=== PATIENT | female | born 1995 | race Asian ===

== ENCOUNTER 2016-05-27 04:16 | Emergency (ER) | payer OTHER ==
[2016-05-27 05:57] LABS: Hematocrit 40 % (35-47); Hemoglobin 13.1 g/dl (12.0-16.0); Mean Corpuscular HGB Conc 33 g/dl (31-36); Mean Corpuscular Hemoglobin 29 pg (27-31); Mean Corpuscular Volume 88 fL (80-97); Mean Platelet Volume 9 um3 (7.4-10.4); Red Blood Count 4.52 10^6/ul (4.0-5.4); Red Cell Distribution Width 13 % (10.5-15); White Blood Count 7.7 10^3/ul (3.5-10.8)
[2016-05-27 06:14] LABS: ALT 6 U/L (7-52); AST 12 U/L (13-39); Albumin 4.8 g/dL (3.2-5.2); Alkaline Phosphatase 42 U/L (34-104); Anion Gap 9 mmol/L (2-11); BUN/Creatinine Ratio 15.6 (8-20); Blood Urea Nitrogen 10 mg/dL (6-24); CO2 Carbon Dioxide 26 mmol/L (22-32); Calcium 9.7 mg/dL (8.6-10.3); Chloride 103 mmol/L (101-111); EGFR African American 152.1 (>60); EGFR Non-African American 118.3 (>60); Globulin 2.9 g/dL (2-4); Glucose 93 mg/dL (70-100); Potassium 3.7 mmol/L (3.5-5.0); Sodium 138 mmol/L (133-145); Total Protein 7.7 g/dL (6.4-8.9)
[2016-05-27 06:24] LABS: Alcohol 126 mg/dL (<10)
--- NOTE | 2016-05-27 06:33 | ED ---
Daryl Faustin Salem, scribed for Ambrose Rankin on 05/27/16 at 0450 . Substance Abuse/Use - HPI Summary HPI Summary: Patient is a 21 y/o female who presents to the ED for the aftermath of EtOH abuse. She denies CP or SOB, but reports whole body feels numb. She also reports having a panic attack and states she has had a hx of panic attacks since she was 16 y/o. - History Of Current Complaint Chief Complaint: EDSubstanceAbuse Stated Complaint: ANXIETY/ALCOHOL COMSUMPTION Time Seen by Provider: 05/27/16 04:20 Hx Obtained From: Patient Overdose Characteristics: Oral Severity Initially: Moderate Severity Currently: Moderate Character: Anxious Aggravating Factor(s): Nothing Alleviating Factor(s): Nothing Associated Signs And Symptoms: Other: - No CP or SOB. PMH/Surg Hx/FS Hx/Imm Hx Previously Healthy: Yes Infectious Disease History: No Infectious Disease History: Denies: Traveled Outside the [place] in Last 30 Days - Family History Known Family History: Positive: Cardiac Disease - Grandmother. Negative: Diabetes - Social History Alcohol Use: Occasionally Hx Tobacco Use: No Review of Systems Negative: Fever Negative: Chest Pain Negative: Shortness Of Breath Positive: Anxious All Other Systems Reviewed And Are Negative: Yes Physical Exam Triage Information Reviewed: Yes Vital Signs On Initial Exam: Initial Vitals Temp Pulse Resp BP Pulse Ox 98.7 F 89 20 125/71 100 05/27/16 04:18 05/27/16 04:18 05/27/16 04:18 05/27/16 04:18 05/27/16 04:18 Vital Signs Reviewed: Yes Appearance: Positive: Well-Appearing, No Pain Distress Skin: Positive: Warm, Skin Color Reflects Adequate Perfusion, Dry Head/Face: Positive: Normal Head/Face Inspection Eyes: Positive: EOMI, MAURICE Neck: Positive: Supple, Nontender Respiratory/Lung Sounds: Positive: Clear to Auscultation, Breath Sounds Present Cardiovascular: Positive: RRR, Pulses are Symmetrical in both Upper and Lower Extremities Abdomen Description: Positive: Nontender, Soft Bowel Sounds: Positive: Present Musculoskeletal: Positive: Normal, Strength/ROM Intact Neurological: Positive: Normal, Sensory/Motor Intact, Alert, Oriented to Person Place, Time Diagnostics - Vital Signs Vital Signs Temp Pulse Resp BP Pulse Ox 05/27/16 04:18 98.7 F 89 20 125/71 100 - Laboratory Result Diagrams: 05/27/16 05:35 05/27/16 05:35 Lab Statement: Any lab studies that have been ordered have been reviewed, and results considered in the medical decision making process. Course/Dx - Diagnoses Provider Diagnoses: Intoxication, Anxiety Discharge - Discharge Plan Condition: Stable Disposition: HOME Patient Education Materials: Alcohol Intoxication (ED), Anxiety (ED) Referrals: [facility] DONYA Conn [Primary Care Provider] - Additional Instructions: Follow up with PCP within 3 days. The documentation as recorded by the Daryl bauer Salem accurately reflects the service I personally performed and the decisions made by Chucho lafleur Emmanuel.
[2016-05-27 06:35] LABS: TSH (Thyroid Stimulating Horm) 1.15 mcIU/mL (0.34-5.60)
[2016-05-27 06:51] VITALS: BP 118/68
== END 2016-05-27 06:46 | disposition home or self-care (01) ==
LOC: ED 04:16
DX: F10.129 Alcohol abuse with intoxication, unspecified (principal); F41.9 Anxiety disorder, unspecified
CPT/HCPCS: 36415; 80053; 80320; 84443; 84702; 85025; 99282; G0480

== ENCOUNTER 2018-12-24 15:04 | Emergency (ER) | payer OTHER ==
[2018-12-24 15:38] LABS: ABS Eosinophils 0.1 10^3/ul (0-0.6); ABS Lymphocytes 1.2 10^3/ul (1.0-4.8); ABS Monocytes 0.4 10^3/ul (0-0.8); Eosinophil % 3.9 %; Hematocrit 33 % (35-47); Hemoglobin 10.9 g/dL (12.0-16.0); Lymphocyte % 31.1 %; Mean Corpuscular HGB Conc 33 g/dL (31-36); Mean Corpuscular Hemoglobin 26 pg (27-31); Mean Corpuscular Volume 78 fL (80-97); Mean Platelet Volume 8.1 fL (7.4-10.4); Platelet Count 286 10^3/uL (150-450); Red Blood Count 4.28 10^6 /uL (3.70-4.87); Red Cell Distribution Width 15 % (10-15); White Blood Count 3.8 10^3/uL (3.5-10.8)
[2018-12-24 15:51] LABS: INR 1.04 (0.82-1.09)
[2018-12-24 16:36] LABS: Albumin 4.8 g/dL (3.2-5.2); Calcium 9.6 mg/dL (8.6-10.3); Potassium 3.8 mmol/L (3.5-5.0); Total Bilirubin 0.4 mg/dL (0.2-1.0)
[2018-12-24 16:42] LABS: Albumin/Globulin Ratio 1.8 (1-3); BUN/Creatinine Ratio 18.1 (8-20); EGFR African American 122.6 (>60); EGFR Non-African American 101.3 (>60); Globulin 2.7 g/dL (2-4); Total Protein 7.5 g/dL (6.4-8.9)
--- NOTE | 2018-12-24 17:11 | ED ---
HPI Chest Pain - HPI Summary HPI Summary: Pt is a 23 y/o F presenting to the ED for a chief complaint of chest pain that has occurred for the last 10 days. Pt saw a nurse at [facility] who recommended the pt to go to the ED. Pt rates the chest pain as 4/10 and describes the pain as burning and pressure that is mostly on the left side. The chest pain is associated with weakness, lightheadedness, nausea, and SOB that worsens with rest and taking deep breaths. Pt denies similar symptoms in the past. LNMP was one month ago. Denies any significant PMHx, alcohol or drug use. Admits FHx of cardiac disease. Pt has smoked e-cigarettes (a juul) for the last 2 years. Denies vomiting. - History of Current Complaint Chief Complaint: EDChestPainROMI Time Seen by Provider: 12/24/18 16:59 Hx Obtained From: Patient Onset/Duration: Started Hours Ago, Atraumatic, Still Present Timing: Constant, Lasting Hours Initial Severity: Moderate Current Severity: Moderate Pain Intensity: 4 Pain Scale Used: 0-10 Numeric Chest Pain Location: Diffuse Chest Pain Radiates: No Character: Burning, Dyspnea at Rest, Pressure/Squeezing Aggravating Factor(s): Rest, Deep Breaths Alleviating Factor(s): Nothing Associated Signs and Symptoms: Positive: Chest Pain, Weakness, Shortness of Breath, Lightheadedness, Nausea. Negative: Vomiting - Allergy/Home Medications Allergies/Adverse Reactions: Allergies Allergy/AdvReac Type Severity Reaction Status Date / Time No Known Allergies Allergy Verified 12/24/18 16:57 Home Medications: Home Medications ALPRAZolam TAB* [Xanax TAB*] 0.25 mg PO Q6H PRN 12/24/18 [History Confirmed ] PMH/Surg Hx/FS Hx/Imm Hx Previously Healthy: Yes Endocrine/Hematology History: Denies: Hx Diabetes Cardiovascular History: Denies: Hx Hypercholesterolemia, Hx Hypertension Sensory History: Denies: Hx Legally Blind, Hx Deafness Opthamlomology History: Denies: Hx Legally Blind Psychiatric History: Reports: Hx Panic Disorder, Hx Bipolar Disorder - Surgical History Surgical History: None Surgery Procedure, Year, and Place: None Infectious Disease History: No Infectious Disease History: Denies: Traveled Outside the [place] in Last 30 Days - Family History Known Family History: Positive: Cardiac Disease - Grandmother. Negative: Diabetes - Social History Occupation: Student Alcohol Use: None Hx Substance Use: No Substance Use Type: Reports: None Hx Tobacco Use: No Smoking Status (MU): Current Every Day Smoker Type: Wanda Length of Time of Smoking/Using Tobacco: Last 2 years Review of Systems Positive: Chest Pain Positive: Shortness Of Breath Positive: Nausea. Negative: Vomiting Neurological: Other - Positive lightheadedness Positive: Weakness All Other Systems Reviewed And Are Negative: Yes Physical Exam - Summary Physical Exam Summary: VITAL SIGNS: Reviewed. GENERAL: Patient is a well-developed and nourished FEMALE who is lying comfortable in the stretcher. Patient is not in any acute respiratory distress. HEAD AND FACE: No signs of trauma. No ecchymosis, hematomas or skull depressions. No sinus tenderness. EYES: PERRLA, EOMI x 2, No injected conjunctiva, no nystagmus. EARS: Hearing grossly intact. Ear canals and tympanic membranes are within normal limits. MOUTH: Oropharynx within normal limits. NECK: Supple, trachea is midline, no adenopathy, no JVD, no carotid bruit, no c- spine tenderness, neck with full ROM. CHEST: Symmetric, no tenderness at palpation. Reproducible chest pain. LUNGS: Clear to auscultation bilaterally. No wheezing or crackles. CVS: Regular rate and rhythm, S1 and S2 present, no murmurs or gallops appreciated. ABDOMEN: Soft, non-tender. No signs of distention. No rebound, no guarding, and no masses palpated. Bowel sounds are normal. EXTREMITIES: FROM in all major joints, no edema, no cyanosis or clubbing. NEURO: Alert and oriented x 3. No acute neurological deficits. Speech is normal and follows commands. SKIN: Dry and warm. Triage Information Reviewed: Yes Vital Signs On Initial Exam: Initial Vitals Temp Pulse Resp BP Pulse Ox 98.2 F 82 16 130/66 100 12/24/18 15:12/24/18 15:12/24/18 15:12/24/18 15:12/24/18 15:09 Vital Signs Reviewed: Yes Diagnostics - Vital Signs Vital Signs Temp Pulse Resp BP Pulse Ox 12/24/18 15: 98.2 F 82 16 130/66 100 - Laboratory Lab Results: Lab Results 12/24/18 12/24/18 12/24/18 Range/Units 15:31 15:31 15:31 WBC 3.8 (3.5-10.8) 10^3/uL RBC 4.28 (3.70-4.87) 10^6 /uL Hgb 10.9 L (12.0-16.0) g/dL Hct 33 L (35-47) % MCV 78 L (80-97) fL MCH 26 L (27-31) pg MCHC 33 (31-36) g/dL RDW 15 (10-15) % Plt Count 286 (150-450) 10^3/uL MPV 8.1 (7.4-10.4) fL Neut % (Auto) 54.6 % Lymph % (Auto) 31.1 % [place] % (Auto) 9.6 % Eos % (Auto) 3.9 % Baso % (Auto) 0.8 % Absolute Neuts (auto) 2.0 (1.5-7.7) 10^3/ul Absolute Lymphs (auto) 1.2 (1.0-4.8) 10^3/ul Absolute Monos (auto) 0.4 (0-0.8) 10^3/ul Absolute Eos (auto) 0.1 (0-0.6) 10^3/ul Absolute Basos (auto) 0.0 (0-0.2) 10^3/ul Absolute Nucleated RBC 0.0 10^3/ul Nucleated RBC % 0.0 INR (Anticoag Therapy) 1.04 (0.82-1.09) Sodium 137 (135-145) mmol/L Potassium 3.8 (3.5-5.0) mmol/L Chloride 105 (101-111) mmol/L Carbon Dioxide 26 (22-32) mmol/L Anion Gap 6 (2-11) mmol/L BUN 13 (6-24) mg/dL Creatinine 0.72 (0.51-0.95) mg/dL Est GFR ( Amer) 122.6 (>60) Est GFR (Non-Af Amer) 101.3 (>60) BUN/Creatinine Ratio 18.1 (8-20) Glucose 91 (70-100) mg/dL Calcium 9.6 (8.6-10.3) mg/dL Total Bilirubin 0.40 (0.2-1.0) mg/dL AST 14 (13-39) U/L ALT 8 (7-52) U/L Alkaline Phosphatase 36 (34-104) U/L Troponin I 0.00 (<0.04) ng/mL Total Protein 7.5 (6.4-8.9) g/dL Albumin 4.8 (3.2-5.2) g/dL Globulin 2.7 (2-4) g/dL Albumin/Globulin Ratio 1.8 (1-3) Result Diagrams: 12/24/18 15:31 12/24/18 15:31 Lab Statement: Any lab studies that have been ordered have been reviewed, and results considered in the medical decision making process. - Radiology Chest X-ray Radiology Interpretation Completed By: ED Physician Summary of Radiographic Findings: Chest X-ray: negative, no acute process, pending official radiology report. - EKG 15:07 Cardiac Rate: NL - 84 BPM EKG Rhythm: Sinus Rhythm ST Segment: Normal Ectopy: None Summary of EKG Findings: EKG at 15:07 shows 84 BPM with sinus rhythm, no STEMI. Reviewed and interpreted by ED physician. Chest Pain Course/Dx - Course Assessment/Plan: This patient is a 23-year-old female who presents to the emergency department with a chief complaint of having chest pain. She reports the chest pain being intermittent, and describes it as sharp and pressure. On physical exam the patient has reproducible chest pain. Blood test results without any significant abnormality. The troponin is 0.00. D-dimer is less than 200 therefore no significant for PE. The heart to score is equal to 0. I have no suspicion for acute coronary syndrome. Chest x-ray impression: No acute pathology. Patient reports that all symptoms have resolved. Because the patient has no significant comorbidities and no family history of cardiovascular disease at his age the patient will be discharged home with follow up with PCP. I discussed all the findings and test results with the patient. Patient was instructed to return to the emergency room immediately if any of the symptoms return or worsens. Patient understands and agrees. Plan of care was discussed with the patient and patient understands and agrees. All questions were answered at patient satisfaction. There were no further complaints or concerns. PE before discharge: CVS: S1 and S2 present. No murmurs appreciated. Abdominal exam before discharge: Soft, non-tender. No signs of distention. No rebound no guarding, and no masses palpated. Bowel sounds are normal. Patient is alert and oriented x 3. Patient is hemodynamically stable. - Diagnoses Provider Diagnoses: Atypical chest pain Discharge ED - Sign-Out/Discharge Documenting (check all that apply): Patient Departure Patient Received Moderate/Deep Sedation with Procedure: No - Discharge Plan Condition: Stable Disposition: HOME Patient Education Materials: Chest Pain (ED) Referrals: [facility] [Primary Care Provider] - Additional Instructions: Please follow up with [facility] within the next 2-3 days. Return to the emergency department with any new or worsening symptoms. - Billing Disposition and Condition Condition: STABLE Disposition: Home - Attestation Statements Document Initiated by Scribe: Yes Documenting Scribe: Palma Moore Provider For Whom Salomon is Documenting (Include Credential): Juan Louise MD. Scribe Attestation: I, Palma Moore, scribed for Juan Louise MD. on 12/25/18 at 0740. Scribe Documentation Reviewed: Yes Provider Attestation: The documentation as recorded by the scribe, Palma Moore accurately reflects the service I personally performed and the decisions made by Juan lafleur MD. Status of Scribe Document: Viewed
[2018-12-24] MEDS ORDERED: Ibuprofen TAB* 600 MG PO ONE (18:10)
[2018-12-24 18:40] VITALS: BP 125/72
== END 2018-12-24 18:40 | disposition home or self-care (01) ==
LOC: ED 15:04
DX: R07.89 Other chest pain (principal); F17.290 Nicotine dependence, other tobacco product, uncomplicated
CPT/HCPCS: 36415; 71045; 80053; 84484; 85025; 85379; 85610; 93005; 99283; A9270-GY

== ENCOUNTER 2018-12-25 23:12 | Emergency (ER) | payer OTHER ==
[2018-12-26 00:01] LABS: ABS Basophils 0.1 10^3/ul (0-0.2); ABS Eosinophils 0.2 10^3/ul (0-0.6); ABS Lymphocytes 1.7 10^3/ul (1.0-4.8); ABS Monocytes 0.9 10^3/ul (0-0.8); ABS Neutrophils 4.2 10^3/ul (1.5-7.7); Eosinophil % 2.3 %; Hematocrit 31 % (35-47); Hemoglobin 9.9 g/dL (12.0-16.0); Lymphocyte % 24.2 %; Mean Corpuscular HGB Conc 32 g/dL (31-36); Mean Corpuscular Hemoglobin 25 pg (27-31); Mean Corpuscular Volume 78 fL (80-97); Mean Platelet Volume 7.7 fL (7.4-10.4); Platelet Count 264 10^3/uL (150-450); Red Blood Count 3.95 10^6 /uL (3.70-4.87); Red Cell Distribution Width 15 % (10-15); White Blood Count 7.1 10^3/uL (3.5-10.8)
[2018-12-26 00:07] LABS: INR 1.1 (0.82-1.09)
[2018-12-26 00:19] LABS: ALT 7 U/L (7-52); AST 12 U/L (13-39); Albumin 4.5 g/dL (3.2-5.2); Albumin/Globulin Ratio 1.8 (1-3); Alkaline Phosphatase 34 U/L (34-104); Anion Gap 4 mmol/L (2-11); BUN/Creatinine Ratio 20.8 (8-20); Blood Urea Nitrogen 15 mg/dL (6-24); CO2 Carbon Dioxide 27 mmol/L (22-32); Calcium 9.3 mg/dL (8.6-10.3); Chloride 105 mmol/L (101-111); EGFR African American 122.6 (>60); EGFR Non-African American 101.3 (>60); Globulin 2.5 g/dL (2-4); Glucose 88 mg/dL (70-100); Potassium 3.7 mmol/L (3.5-5.0); Sodium 136 mmol/L (135-145)
[2018-12-26 00:43] LABS: HCG Pregnancy < 0.60 mIU/mL
[2018-12-26 00:54] LABS: HIV 4th Generation Nonreactive (Nonreactive)
[2018-12-26] MEDS ORDERED: Ketorolac INJ* 30 MG/ML 1 ML VIAL IM ONE (01:10)
--- NOTE | 2018-12-26 02:27 | ED ---
HPI Chest Pain - HPI Summary HPI Summary: Pt is a 23 y/o F presenting to the ED for a chief complaint of severe chest pain that began 2 hours ago while sitting. She was seen 12/24/18 after having similar chest pain for 10-14 days. Pt describes the pain as a pressure and now describes present pain as a burning sensation and pressure. The location of the pain varies and she occasionally feels the pain radiating to the back. The pain is currently in the midsternal chest. Pt tried eating healthier and sleeping better with no relief. [facility] and the nurse she spoke to told her to go to the ED. No significant findings were found when pt was previously at [facility] as told by patient. Pt has nausea, fatigue, lightheadedness, and SOB but denies diaphoresis. The pain is currently better than the pain she had 2 hours ago sitting and at rest. - History of Current Complaint Chief Complaint: EDChestPainROMI Time Seen by Provider: 12/26/18 01:03 Hx Obtained From: Patient Onset/Duration: Started Days Ago, Atraumatic, Still Present Timing: Lasting Days Initial Severity: Severe Current Severity: Severe Pain Intensity: 7 Pain Scale Used: 0-10 Numeric Chest Pain Location: Mid Sternal Chest Pain Radiates: Yes Chest Pain Radiates To:: Back Character: Burning, Pressure/Squeezing Aggravating Factor(s): Rest Alleviating Factor(s): Nothing Associated Signs and Symptoms: Positive: Chest Pain, Shortness of Breath, Lightheadedness, Nausea, Other: - Positive fatigue,. Negative: Diaphoresis - Allergy/Home Medications Allergies/Adverse Reactions: Allergies Allergy/AdvReac Type Severity Reaction Status Date / Time No Known Allergies Allergy Verified 12/25/18 23:49 PMH/Surg Hx/FS Hx/Imm Hx Previously Healthy: Yes Endocrine/Hematology History: Denies: Hx Diabetes Cardiovascular History: Denies: Hx Hypercholesterolemia, Hx Hypertension Sensory History: Denies: Hx Legally Blind, Hx Deafness Opthamlomology History: Denies: Hx Legally Blind Psychiatric History: Reports: Hx Panic Disorder, Hx Bipolar Disorder - Surgical History Surgical History: None Surgery Procedure, Year, and Place: None Infectious Disease History: No Infectious Disease History: Denies: Traveled Outside the [place] in Last 30 Days - Family History Known Family History: Positive: Cardiac Disease - Grandmother. Negative: Diabetes - Social History Alcohol Use: Occasionally Hx Substance Use: No Substance Use Type: Reports: None Hx Tobacco Use: No Smoking Status (MU): Current Every Day Smoker Type: Wanda Length of Time of Smoking/Using Tobacco: Last 2 years Review of Systems Positive: Fatigue. Negative: Skin Diaphoresis Positive: Chest Pain Positive: Shortness Of Breath Positive: Nausea Neurological: Other - Positive lightheadedness All Other Systems Reviewed And Are Negative: Yes Physical Exam - Summary Physical Exam Summary: General: Well-developed, Well-nourished. Female. No acute distress. HEENT: Normocephalic, Atraumatic. Eyes: Conjuctiva normal, PERRL. Ears: TMs within normal limits. Nares: (-) discharge, (-) erythema. Oropharynx: Clear, mucous membranes moist, (-) exudates. Neck: Soft, FROM, (-) lymphadenopathy, (-) thyromegaly, (-) JVD. Cardiovascular: Normal sinus rhythm, (-) murmur. Lungs: Clear to auscultation bilaterally (-) wheezes, (-) rales, (-) rhonchi. Abdomen: Soft, non-tender, non-distended, (-) organomegaly, normal bowel sounds. Back: (-) CVA tenderness Extremities: No edema. Skin: Warm, dry, (-) rash. Neuro: Alert and oriented x3, no focal deficits. Psychiatric: Mood normal, affect normal. Triage Information Reviewed: Yes Vital Signs On Initial Exam: Initial Vitals Temp Pulse Resp BP Pulse Ox 99 F 83 18 124/87 100 12/25/18 23:22 12/25/18 23:22 12/25/18 23:22 12/25/18 23:22 12/25/18 23:22 Vital Signs Reviewed: Yes Diagnostics - Vital Signs Vital Signs Temp Pulse Resp BP Pulse Ox 12/26/18 00:00 72 28 100 12/25/18 23:37 74 26 128/71 100 12/25/18 23:36 75 17 100 12/25/18 23:22 99 F 83 18 124/87 100 - Laboratory Lab Results: Lab Results 12/25/18 12/25/18 12/25/18 Range/Units 23:55 23:55 23:55 WBC 7.1 (3.5-10.8) 10^3/uL RBC 3.95 (3.70-4.87) 10^6 /uL Hgb 9.9 L (12.0-16.0) g/dL Hct 31 L (35-47) % MCV 78 L (80-97) fL MCH 25 L (27-31) pg MCHC 32 (31-36) g/dL RDW 15 (10-15) % Plt Count 264 (150-450) 10^3/uL MPV 7.7 (7.4-10.4) fL Neut % (Auto) 59.8 % Lymph % (Auto) 24.2 % [place] % (Auto) 12.9 % Eos % (Auto) 2.3 % Baso % (Auto) 0.8 % Absolute Neuts (auto) 4.2 (1.5-7.7) 10^3/ul Absolute Lymphs (auto) 1.7 (1.0-4.8) 10^3/ul Absolute Monos (auto) 0.9 H (0-0.8) 10^3/ul Absolute Eos (auto) 0.2 (0-0.6) 10^3/ul Absolute Basos (auto) 0.1 (0-0.2) 10^3/ul Absolute Nucleated RBC 0.0 10^3/ul Nucleated RBC % 0.0 INR (Anticoag Therapy) 1.10 H (0.82-1.09) Sodium 136 (135-145) mmol/L Potassium 3.7 (3.5-5.0) mmol/L Chloride 105 (101-111) mmol/L Carbon Dioxide 27 (22-32) mmol/L Anion Gap 4 (2-11) mmol/L BUN 15 (6-24) mg/dL Creatinine 0.72 (0.51-0.95) mg/dL Est GFR ( Amer) 122.6 (>60) Est GFR (Non-Af Amer) 101.3 (>60) BUN/Creatinine Ratio 20.8 H (8-20) Glucose 88 (70-100) mg/dL Calcium 9.3 (8.6-10.3) mg/dL Total Bilirubin 0.40 (0.2-1.0) mg/dL AST 12 L (13-39) U/L ALT 7 (7-52) U/L Alkaline Phosphatase 34 (34-104) U/L Troponin I 0.00 (<0.04) ng/mL Total Protein 7.0 (6.4-8.9) g/dL Albumin 4.5 (3.2-5.2) g/dL Globulin 2.5 (2-4) g/dL Albumin/Globulin Ratio 1.8 (1-3) Beta HCG, Quant < 0.60 mIU/mL HIV 1&2 Ab/P24 Ag 4thGn (Nonreactive) 12/25/18 Range/Units 23:55 WBC (3.5-10.8) 10^3/uL RBC (3.70-4.87) 10^6 /uL Hgb (12.0-16.0) g/dL Hct (35-47) % MCV (80-97) fL MCH (27-31) pg MCHC (31-36) g/dL RDW (10-15) % Plt Count (150-450) 10^3/uL MPV (7.4-10.4) fL Neut % (Auto) % Lymph % (Auto) % [place] % (Auto) % Eos % (Auto) % Baso % (Auto) % Absolute Neuts (auto) (1.5-7.7) 10^3/ul Absolute Lymphs (auto) (1.0-4.8) 10^3/ul Absolute Monos (auto) (0-0.8) 10^3/ul Absolute Eos (auto) (0-0.6) 10^3/ul Absolute Basos (auto) (0-0.2) 10^3/ul Absolute Nucleated RBC 10^3/ul Nucleated RBC % INR (Anticoag Therapy) (0.82-1.09) Sodium (135-145) mmol/L Potassium (3.5-5.0) mmol/L Chloride (101-111) mmol/L Carbon Dioxide (22-32) mmol/L Anion Gap (2-11) mmol/L BUN (6-24) mg/dL Creatinine (0.51-0.95) mg/dL Est GFR ( Amer) (>60) Est GFR (Non-Af Amer) (>60) BUN/Creatinine Ratio (8-20) Glucose (70-100) mg/dL Calcium (8.6-10.3) mg/dL Total Bilirubin (0.2-1.0) mg/dL AST (13-39) U/L ALT (7-52) U/L Alkaline Phosphatase (34-104) U/L Troponin I (<0.04) ng/mL Total Protein (6.4-8.9) g/dL Albumin (3.2-5.2) g/dL Globulin (2-4) g/dL Albumin/Globulin Ratio (1-3) Beta HCG, Quant mIU/mL HIV 1&2 Ab/P24 Ag 4thGn Nonreactive (Nonreactive) Result Diagrams: 12/25/18 23:55 12/25/18 23:55 Lab Statement: Any lab studies that have been ordered have been reviewed, and results considered in the medical decision making process. - Radiology Chest X-ray Radiology Interpretation Completed By: ED Physician Summary of Radiographic Findings: Chest X-ray impression: normal. Reviewed by ED physician, pending official radiology report. - EKG 23:15 Cardiac Rate: NL - 90 BPM EKG Rhythm: Sinus Rhythm ST Segment: Normal Ectopy: None Summary of EKG Findings: At 23:15, EKG reveals 90 BPM, normal sinus rhythm, no STEMI. Reviewed and interpreted by Dr. Yanes. Chest Pain Course/Dx - Course Course Of Treatment: Pt is a 23 y/o F presenting to the ED for a chief complaint of severe chest pain that began 2 hours ago while sitting. She was seen 12/24/18 after having similar chest pain for 10-14 days. Pt describes the pain as a pressure and now describes present pain as a burning sensation and pressure. The location of the pain varies and she occasionally feels the pain radiating to the back. The pain is currently in the midsternal chest. Pt tried eating healthier and sleeping better with no relief. [facility] and the nurse she spoke to told her to go to the ED. No significant findings were found when pt was previously at [facility] as told by patient. Pt has nausea, fatigue, lightheadedness, and SOB but denies diaphoresis. The pain is currently better than the pain she had 2 hours ago sitting and at rest. On exam, unremarkable findings. Laboratory abnormal findings: Hgb 9.9, Hct 31, MCV 78, MCH 25, absolute monos 0.9, INR 1.10, BUN/ creatinine 20.8, and AST 12. At 23:15, EKG reveals 90 BPM, normal sinus rhythm , no STEMI. Reviewed and interpreted by Dr. Yanes. Chest X-ray impression: normal. During ED course, patient received Toradol 30 mg IM. Patient is discharged with a diagnosis of chest pain and anxiety. Follow up with PCP ithin 3 days. Return to ED for any new or worsening symptoms. - Diagnoses Provider Diagnoses: Chest pain, Anxiety Discharge ED - Sign-Out/Discharge Documenting (check all that apply): Patient Departure - Discharged Patient Received Moderate/Deep Sedation with Procedure: No - Discharge Plan Condition: Stable Disposition: HOME Patient Education Materials: Chest Pain (ED) [facility] - Additional Instructions: Follow up with primary care provider within 3 days. Return to ED for any new or worsening symptoms. - Billing Disposition and Condition Condition: STABLE Disposition: Home - Attestation Statements Document Initiated by Scribe: Yes Documenting Scribe: Omega Grajeda Provider For Whom Friedae is Documenting (Include Credential): Estrella Yanes MD. Scribe Attestation: Omega Faustin, scribed for Estrella Yanes MD. on 12/27/18 at 0025. Scribe Documentation Reviewed: Yes Provider Attestation: The documentation as recorded by the Omega bauer accurately reflects the service I personally performed and the decisions made by me, Estrella Yanes MD. Status of Scribe Document: Viewed
[2018-12-26 02:41] VITALS: BP 124/76
== END 2018-12-26 02:40 | disposition home or self-care (01) ==
LOC: ED 23:12
DX: R07.9 Chest pain, unspecified (principal); R06.02 Shortness of breath; R42 Dizziness and giddiness; R53.83 Other fatigue; F17.210 Nicotine dependence, cigarettes, uncomplicated; R11.0 Nausea; F41.9 Anxiety disorder, unspecified
CPT/HCPCS: 36415; 71045; 80053; 84484; 84702; 85025; 85610; 87389; 93005; 96372; 99283; J1885

== ENCOUNTER 2019-01-08 19:46 | Emergency (ER) | payer OTHER ==
--- NOTE | 2019-01-08 20:12 | ED ---
Throat Pain/Nasal Congestion - HPI Summary HPI Summary: Pt is a 23 y/o F presenting to the ED via EMS for throat pain. At approximately 18:30 on 01/08/19, pt states she choked while eating candy after which pt felt she could not breathe. Pt had SOB twice after eating the candy and currently has a sore throat. Pt feels a burning sensation in the chest and feels clogged. Pt has a foreign body sensation of the candy being stuck in the esophagus. Pt has been drinking hot tea with limited relief. Pt smokes e-cigarettes daily. Pt denies PMHx of DM, but admits HTN in her father. Pt denies any significant PMHx or PSHx. - History of Current Complaint Chief Complaint: EDThroatPain Time Seen by Provider: 01/08/19 20:00 Hx Obtained From: Patient Onset/Duration: Sudden Onset, Lasting Hours, Still Present Severity: Moderate Associated Signs And Symptoms: Positive: Dysphagia, FB Sensation - Candy Cough: None - Allergies/Home Medications Allergies/Adverse Reactions: Allergies Allergy/AdvReac Type Severity Reaction Status Date / Time No Known Allergies Allergy Verified 01/08/19 20:02 PMH/Surg Hx/FS Hx/Imm Hx Previously Healthy: Yes Endocrine/Hematology History: Denies: Hx Diabetes Cardiovascular History: Denies: Hx Hypercholesterolemia, Hx Hypertension Sensory History: Denies: Hx Legally Blind, Hx Deafness Opthamlomology History: Denies: Hx Legally Blind Psychiatric History: Reports: Hx Panic Disorder, Hx Bipolar Disorder - Surgical History Surgical History: None Surgery Procedure, Year, and Place: None Infectious Disease History: No Infectious Disease History: Denies: Traveled Outside the [place] in Last 30 Days - Family History Known Family History: Positive: Cardiac Disease - Grandmother. , Hypertension - Father Negative: Diabetes - Social History Occupation: Student Alcohol Use: Occasionally Hx Substance Use: No Substance Use Type: Reports: None Hx Tobacco Use: No Smoking Status (MU): Current Every Day Smoker Type: eCigarettes Length of Time of Smoking/Using Tobacco: Last 2 years Review of Systems Positive: Sore Throat, Other - Positive thraot pain and foreign body sensation in esophagus after eating candy. Positive: Other - Burning sensation in chest Positive: Shortness Of Breath All Other Systems Reviewed And Are Negative: Yes Physical Exam - Summary Physical Exam Summary: Constitutional: Well-developed, Well-nourished, Alert. (-) Distressed Skin: Warm, Dry HENT: Normocephalic; Atraumatic Eyes: Conjunctiva normal Neck: Musculoskeletal ROM normal neck. (-) JVD, (-) Stridor, (-) Nuchal rigidity Cardio: Rhythm regular, rate normal, Heart sounds normal; Intact distal pulses; Radial pulses are 2+ and symmetric. (-) Murmur Pulmonary/Chest wall: Effort normal. (-) Respiratory distress, (-) Wheezes, (-) Rales Abd: Soft, (-) tenderness, (-) Distension, (-) Guarding, (-) Rebound Musculoskeletal: (-) Edema Lymph: (-) Cervical adenopathy Neuro: Alert, Oriented x3 Psych: Mood and affect Normal Triage Information Reviewed: Yes Vital Signs On Initial Exam: Initial Vitals Temp Pulse Resp BP Pulse Ox 98.0 F 79 16 126/67 100 01/08/19 19:56 01/08/19 19:56 01/08/19 19:56 01/08/19 19:56 01/08/19 19:56 Vital Signs Reviewed: Yes Procedures - Sedation Patient Received Moderate/Deep Sedation with Procedure: No Diagnostics - Vital Signs Vital Signs Temp Pulse Resp BP Pulse Ox 01/08/19 19:56 98.0 F 79 16 126/67 100 - Laboratory Lab Statement: Any lab studies that have been ordered have been reviewed, and results considered in the medical decision making process. - Radiology Chest X-ray Radiology Interpretation Completed By: ED Physician Summary of Radiographic Findings: Chest X-ray IMPRESSION: no acute process. Reviewed and interpreted by ED physician, pending official radiology report. Re-Evaluation - Re-Evaluation 1st re-eval Re-Evaluation Time: 21:27 Change: Improved Comment: At 21:27, pt is improved, tolerating PO. Denies FB sensation EENT Course/Dx - Course Course Of Treatment: 23 y/o F w FB sensation of candy. - PE: soft abdomen, easy WOB. No excoriations of pharynx. Check CXR though low suspicion of FB. Will give GI cocktail. Tolerating PO. - Diagnoses Provider Diagnoses: Throat pain, Foreign body ingestion Discharge ED - Sign-Out/Discharge Documenting (check all that apply): Patient Departure - Discharge - Discharge Plan Condition: Stable Disposition: HOME Patient Education Materials: Foreign Body Ingestion (ED) Referrals: [facility] - Jass DANIEL [Primary Care Provider] - Additional Instructions: You were seen in the emergency department for sore throat and concern for foreign body ingestion. Your XR did not show any abnormalities. If any studies were not completed at the time of discharge you will be called with the relevant results. Please follow up with your primary care doctor in next 2-3 days and return to emergency department for worsening or concerning symptoms. It was a pleasure taking care of you today. - Billing Disposition and Condition Condition: STABLE Disposition: Home - Attestation Statements Document Initiated by Salomon: Yes Documenting Scribe: Radha Sandoval Provider For Whom Salomon is Documenting (Include Credential): Twila Hair MD Scribe Attestation: Radha Faustin, scribed for Twila Hair MD on 01/08/19 at 2317. Scribe Documentation Reviewed: Yes Provider Attestation: The documentation as recorded by the Radha bauer accurately reflects the service I personally performed and the decisions made by Twila lafleur MD Status of Scribe Document: Viewed
[2019-01-08] MEDS ORDERED: Lidocaine 2% VISCOUS* 15 ML UDC PO ONE (20:17)
[2019-01-08] MEDS ORDERED: Al Hydrox/Mg Hydrox/Simet LIQ* 30 ML UDC PO ONE (20:17)
[2019-01-08 21:42] VITALS: BP 118/74
== END 2019-01-08 21:40 | disposition home or self-care (01) ==
LOC: ED 19:46
DX: R07.0 Pain in throat (principal); T18.9XXA Foreign body of alimentary tract, part unspecified, initial encounter; X58.XXXA Exposure to other specified factors, initial encounter; Y92.9 Unspecified place or not applicable; F17.210 Nicotine dependence, cigarettes, uncomplicated; R06.02 Shortness of breath
CPT/HCPCS: 71046; 99282; A9270-GY

== ENCOUNTER 2019-01-13 16:48 | Emergency (ER) | payer OTHER ==
--- NOTE | 2019-01-13 19:27 | ED ---
HPI Chest Pain - HPI Summary HPI Summary: Pt is a 23 y/o F presenting to the ED for a chief complaint of chest pain that most recently began 2 days ago. Pt was previously seen at [facility] and told to go to the ED. Pt states the CP is intermittent and is right-sided and midsternal. The CP worsens with movement and occasionally worsens with deep breaths. Pt describes the CP as pressure, but describes the CP previously felt sharp with pressure. Pt admits nausea, SOB, sore throat, and numbness in the left arm. Pt denies bilateral LE edema or changes in sleeping patterns. Pt last travelled in October 2018. Pt was seen at [facility] and told she had gastritis. Pt has been taking medication for gastritis for 2-3 weeks. Pt was previously seen at [facility] twice 3 weeks ago with unremarkable findings. Pt denies and LNMP was on 01/03/19. - History of Current Complaint Chief Complaint: EDChestPainROMI Time Seen by Provider: 01/13/19 19:10 Hx Obtained From: Patient Hx Last Menstrual Period: 01/03/19 Onset/Duration: Started Days Ago - 2 days Timing: Intermittent Initial Severity: Moderate Current Severity: Moderate Pain Intensity: 6 Pain Scale Used: 0-10 Numeric Chest Pain Location: Mid Sternal, Left Anterior Chest Pain Radiates: No Character: Pressure/Squeezing - At present time, Sharp/Stabbing - Not at present time Aggravating Factor(s): Movement, Deep Breaths - Occasionally Alleviating Factor(s): Nothing Associated Signs and Symptoms: Positive: Chest Pain - Right sided and midsternal , Numbness - Left arm, Shortness of Breath, Nausea, Other: - Positive sore throat. Negative: Edema - Bilateral LE - Allergy/Home Medications Allergies/Adverse Reactions: Allergies Allergy/AdvReac Type Severity Reaction Status Date / Time No Known Allergies Allergy Verified 01/13/19 17:17 Home Medications: Home Medications Ferrous Sulfate TAB* 325 mg PO DAILY 01/13/19 [History Confirmed 01/13/19] Omeprazole (Nf) [Prilosec (NF)] 40 mg PO DAILY 01/13/19 [History Confirmed 01/13] PMH/Surg Hx/FS Hx/Imm Hx Previously Healthy: Yes Endocrine/Hematology History: Denies: Hx Diabetes Cardiovascular History: Denies: Hx Hypercholesterolemia, Hx Hypertension Sensory History: Denies: Hx Legally Blind, Hx Deafness Opthamlomology History: Denies: Hx Legally Blind Psychiatric History: Reports: Hx Panic Disorder, Hx Bipolar Disorder - Surgical History Surgical History: None Surgery Procedure, Year, and Place: None Infectious Disease History: No Infectious Disease History: Denies: Traveled Outside the [place] in Last 30 Days - Family History Known Family History: Positive: Cardiac Disease - Grandmother. , Hypertension - Father Negative: Diabetes - Social History Alcohol Use: Occasionally Hx Substance Use: No Substance Use Type: Reports: None Hx Tobacco Use: No Smoking Status (MU): Current Every Day Smoker Type: eCigarettes Length of Time of Smoking/Using Tobacco: Last 2 years Review of Systems Positive: Sore Throat Positive: Chest Pain - Right sided and midsternal Positive: Shortness Of Breath Positive: Nausea Negative: Edema - Bilateral LE Positive: Numbness - Left arm Positive: Other - Negative changes in sleeping pattern All Other Systems Reviewed And Are Negative: Yes Physical Exam - Summary Physical Exam Summary: Appearance: The patient is well-nourished in no acute distress and in no acute pain. Skin: The skin is warm and dry, and skin color reflects adequate perfusion. HEENT: The head is normocephalic and atraumatic. The pupils are equal and reactive. The conjunctivae are clear and without drainage. Nares are patent and without drainage. Mouth reveals moist mucous membranes, and the throat is without erythema and exudate. The external ears are intact. The ear canals are patent and without drainage. The tympanic membranes are intact. Neck: The neck is supple with full range of motion and non-tender. There are no carotid bruits. There is no neck vein distension. Respiratory: Chest is non-tender. Lungs are clear to auscultation and breath sounds are symmetrical and equal. Cardiovascular: Heart is regular rate and rhythm. There is no murmur or rub auscultated. There is no peripheral edema and pulses are symmetrical and equal. Tender in the anterior parasternal chest wall. Abdomen: The abdomen is soft and non-tender. There are normal bowel sounds heard in all four quadrants and there is no organomegaly palpated. Musculoskeletal: There is no back tenderness noted. Extremities are non-tender with full range of motion. There is good capillary refill. There is no peripheral edema or calf tenderness elicited. Neurological: Patient is alert and oriented to person, place and time. The patient has symmetrical motor strength in all four extremities. Cranial nerves are grossly intact. Deep tendon reflexes are symmetrical and equal in all four extremities. Psychiatric: The patient has an appropriate affect and does not exhibit any anxiety or depression. Triage Information Reviewed: Yes Vital Signs On Initial Exam: Initial Vitals Temp Pulse Resp BP Pulse Ox 97.8 F 86 14 118/69 100 01/13/19 16:48 01/13/19 16:48 01/13/19 16:48 01/13/19 16:48 01/13/19 16:48 Vital Signs Reviewed: Yes Procedures - Sedation Patient Received Moderate/Deep Sedation with Procedure: No Diagnostics - Vital Signs Vital Signs Temp Pulse Resp BP Pulse Ox 01/13/19 16:48 97.8 F 86 14 118/69 100 - Laboratory Lab Statement: Any lab studies that have been ordered have been reviewed, and results considered in the medical decision making process. - Radiology Chest X-ray Radiology Interpretation Completed By: ED Physician Summary of Radiographic Findings: Chest X-ray IMPRESSION: no acute process. Reviewed and interpreted by ED physician, pending official radiology report. Chest Pain Course/Dx - Course Course Of Treatment: Ms. Bajwa presented with a right-sided chest pain. She was nontoxic in appearance is stable vitals. She was tender in the right anterior chest wall and the pain was exacerbated by movement consistent with chest wall pain. She does favor nicotine a lot and in the current climate I felt a chest x-ray was warranted given the seriousness of EVALI. Chest x-ray was unremarkable and I think this is a chest wall pain. I gave her a short course of Celebrex given that she has a recent diagnosis of gastritis. I recommended follow-up with [facility]. - Diagnoses Provider Diagnoses: Chest wall pain Discharge ED - Sign-Out/Discharge Documenting (check all that apply): Patient Departure - Discharge - Discharge Plan Condition: Stable Disposition: HOME Prescriptions: celeCOXIB CAP* [CeleBREX CAP*] 100 mg PO BID #10 cap Patient Education Materials: Chest Wall Pain (ED) Referrals: [facility] Jass BRADFORD [Primary Care Provider] - Additional Instructions: Follow up with your primary care provider in 2-3 days. Return to the ED for any new or worsening symptoms. - Billing Disposition and Condition Condition: STABLE Disposition: Home - Attestation Statements Document Initiated by Careyibe: Yes Documenting Scribe: Radha Sandoval Provider For Whom Salomon is Documenting (Include Credential): Mehul Jolly MD Scribe Attestation: Radha Faustin, scribed for Mehul Jolly MD on 01/13/19 at 2057. Scribe Documentation Reviewed: Yes Provider Attestation: The documentation as recorded by the Radha bauer accurately reflects the service I personally performed and the decisions made by me, Mehul Jolly MD Status of Scribe Document: Viewed
[2019-01-13 20:27] VITALS: BP 113/70
== END 2019-01-13 20:26 | disposition home or self-care (01) ==
LOC: ED 16:48
DX: R07.89 Other chest pain (principal); R06.02 Shortness of breath; R11.0 Nausea; J02.9 Acute pharyngitis, unspecified; R20.0 Anesthesia of skin; Z82.49 Family history of ischemic heart disease and other diseases of the circulatory system; F17.290 Nicotine dependence, other tobacco product, uncomplicated
CPT/HCPCS: 71046; 93005; 99282

== ENCOUNTER 2019-01-14 17:07 | Emergency (ER) | payer OTHER ==
[2019-01-14 20:33] LABS: INR 1.07 (0.82-1.09)
[2019-01-14 20:36] LABS: ALT 10 U/L (7-52); AST 14 U/L (13-39); Albumin 4.7 g/dL (3.2-5.2); Albumin/Globulin Ratio 1.7 (1-3); Alkaline Phosphatase 48 U/L (34-104); Anion Gap 6 mmol/L (2-11); BUN/Creatinine Ratio 14.5 (8-20); Blood Urea Nitrogen 10 mg/dL (6-24); C Reactive Protein < 1.00 mg/L (<8.01); CO2 Carbon Dioxide 30 mmol/L (22-32); Calcium 9.7 mg/dL (8.6-10.3); Chloride 101 mmol/L (101-111); EGFR African American 128.7 (>60); EGFR Non-African American 106.4 (>60); Globulin 2.7 g/dL (2-4); Glucose 83 mg/dL (70-100); Potassium 3.8 mmol/L (3.5-5.0); Sodium 137 mmol/L (135-145); Total Protein 7.4 g/dL (6.4-8.9)
[2019-01-14 20:40] LABS: ABS Eosinophils 0.1 10^3/ul (0-0.6); ABS Lymphocytes 0.7 10^3/ul (1.0-4.8); ABS Monocytes 0.8 10^3/ul (0-0.8); ABS Neutrophils 3.4 10^3/ul (1.5-7.7); Eosinophil % 1.8 %; Hematocrit 34 % (35-47); Hemoglobin 11.2 g/dL (12.0-16.0); Lymphocyte % 14.3 %; Mean Corpuscular HGB Conc 33 g/dL (31-36); Mean Corpuscular Hemoglobin 26 pg (27-31); Mean Corpuscular Volume 80 fL (80-97); Mean Platelet Volume 8.3 fL (7.4-10.4); Platelet Count 294 10^3/uL (150-450); Red Blood Count 4.28 10^6 /uL (3.70-4.87); Red Cell Distribution Width 17 % (10-15)
[2019-01-14 20:42] LABS: HCG Pregnancy < 0.60 mIU/mL
--- NOTE | 2019-01-14 20:52 | ED ---
HPI Chest Pain - HPI Summary HPI Summary: 23-year-old male presents with chest pain for the past 3 days. She states that she has been treated for gastritis for the past 3 weeks with what she believes is Pepcid. She said she has no improvement. She states chest pain has been changing locations. Chest pain is mostly on the right side of her chest. States is sharp in nature. She states that has occasional shortness breath. No cough. No recent illness. She admits to acid reflux. Denies any nausea vomiting. - History of Current Complaint Chief Complaint: EDChestPainROMI Time Seen by Provider: 01/14/19 19:35 Hx Last Menstrual Period: 01/03/19 Pain Intensity: 6 - Allergy/Home Medications Allergies/Adverse Reactions: Allergies Allergy/AdvReac Type Severity Reaction Status Date / Time No Known Allergies Allergy Verified 01/13/19 17:17 PMH/Surg Hx/FS Hx/Imm Hx Endocrine/Hematology History: Denies: Hx Diabetes Cardiovascular History: Denies: Hx Hypercholesterolemia, Hx Hypertension Sensory History: Denies: Hx Legally Blind, Hx Deafness Opthamlomology History: Denies: Hx Legally Blind Psychiatric History: Reports: Hx Panic Disorder, Hx Bipolar Disorder - Surgical History Surgery Procedure, Year, and Place: None Infectious Disease History: No Infectious Disease History: Denies: Traveled Outside the [place] in Last 30 Days - Family History Known Family History: Positive: Cardiac Disease - Grandmother. , Hypertension - Father Negative: Diabetes - Social History Alcohol Use: Occasionally Hx Substance Use: No Substance Use Type: Reports: None Hx Tobacco Use: No Smoking Status (MU): Current Every Day Smoker Type: eCigvenus Length of Time of Smoking/Using Tobacco: Last 2 years Review of Systems Negative: Fever Positive: Chest Pain Positive: Shortness Of Breath. Negative: Cough Positive: Abdominal Pain All Other Systems Reviewed And Are Negative: Yes Physical Exam Triage Information Reviewed: Yes Vital Signs On Initial Exam: Initial Vitals Temp Pulse Resp BP Pulse Ox 97.7 F 90 16 114/42 100 01/14/19 17:14 01/14/19 17:14 01/14/19 17:14 01/14/19 17:14 01/14/19 17:14 Vital Signs Reviewed: Yes Appearance: Positive: Well-Appearing Skin: Positive: Warm, Dry Head/Face: Positive: Normal Head/Face Inspection Eyes: Positive: Normal, EOMI, MAURICE, Conjunctiva Clear ENT: Positive: Pharynx normal Respiratory/Lung Sounds: Positive: Clear to Auscultation, Breath Sounds Present , Other - reproducible chest pain Cardiovascular: Positive: Normal, RRR Abdomen Description: Positive: Soft, Other: - tenderness in LUQ Bowel Sounds: Positive: Present Musculoskeletal: Positive: Normal Neurological: Positive: Normal Psychiatric: Positive: Normal Procedures - Sedation Patient Received Moderate/Deep Sedation with Procedure: No Diagnostics - Vital Signs Vital Signs Temp Pulse Resp BP Pulse Ox 01/14/19 20:15 70 20 108/63 97 01/14/19 20:00 76 16 97 01/14/19 19:45 72 17 120/71 97 01/14/19 19:15 77 24 125/74 99 01/14/19 17:14 97.7 F 90 16 114/42 100 - Laboratory Lab Results: Lab Results 01/14/19 01/14/19 01/14/19 Range/Units 20:10 20:10 20:10 WBC 5.0 (3.5-10.8) 10^3/uL RBC 4.28 (3.70-4.87) 10^6 /uL Hgb 11.2 L (12.0-16.0) g/dL Hct 34 L (35-47) % MCV 80 (80-97) fL MCH 26 L (27-31) pg MCHC 33 (31-36) g/dL RDW 17 H (10-15) % Plt Count 294 (150-450) 10^3/uL MPV 8.3 (7.4-10.4) fL Neut % (Auto) 67.5 % Lymph % (Auto) 14.3 % [place] % (Auto) 16.0 % Eos % (Auto) 1.8 % Baso % (Auto) 0.4 % Absolute Neuts (auto) 3.4 (1.5-7.7) 10^3/ul Absolute Lymphs (auto) 0.7 L (1.0-4.8) 10^3/ul Absolute Monos (auto) 0.8 (0-0.8) 10^3/ul Absolute Eos (auto) 0.1 (0-0.6) 10^3/ul Absolute Basos (auto) 0.0 (0-0.2) 10^3/ul Absolute Nucleated RBC 0.0 10^3/ul Nucleated RBC % 0.0 INR (Anticoag Therapy) 1.07 (0.82-1.09) D-Dimer, Quantitative < 200 (Less Than 230) ng/mL Sodium 137 (135-145) mmol/L Potassium 3.8 (3.5-5.0) mmol/L Chloride 101 (101-111) mmol/L Carbon Dioxide 30 (22-32) mmol/L Anion Gap 6 (2-11) mmol/L BUN 10 (6-24) mg/dL Creatinine 0.69 (0.51-0.95) mg/dL Est GFR ( Amer) 128.7 (>60) Est GFR (Non-Af Amer) 106.4 (>60) BUN/Creatinine Ratio 14.5 (8-20) Glucose 83 (70-100) mg/dL Calcium 9.7 (8.6-10.3) mg/dL Total Bilirubin 0.40 (0.2-1.0) mg/dL AST 14 (13-39) U/L ALT 10 (7-52) U/L Alkaline Phosphatase 48 (34-104) U/L Troponin I 0.00 (<0.04) ng/mL C-Reactive Protein < 1.00 (<8.01) mg/L Total Protein 7.4 (6.4-8.9) g/dL Albumin 4.7 (3.2-5.2) g/dL Globulin 2.7 (2-4) g/dL Albumin/Globulin Ratio 1.7 (1-3) Beta HCG, Quant < 0.60 mIU/mL Result Diagrams: 01/14/19 20:10 01/14/19 20:10 Lab Statement: Any lab studies that have been ordered have been reviewed, and results considered in the medical decision making process. - EKG No standard instances Cardiac Rate: NL EKG Rhythm: Sinus Rhythm EKG Comparison: No Significant Change Summary of EKG Findings: sinus rhythm Chest Pain Course/Dx - Course Course Of Treatment: 23-year-old male presents with chest pain for the past 3 days. She states that she has been treated for gastritis for the past 3 weeks with what she believes is Pepcid. She said she has no improvement. She states chest pain has been changing locations. Chest pain is mostly on the right side of her chest. States is sharp in nature. She states that has occasional shortness breath. No cough. No recent illness. She admits to acid reflux. Denies any nausea vomiting. On exam reproducible chest pain. Lungs clear auscultation. Abdomen tenderness in left upper quadrant. EKG shows sinus rhythm. Chest x-ray was taken yesterday was normal. D-dimer is negative. Troponin is 0. CRP normal. Discussed likely chest wall pain with combination of a gastritis. Will place patient on omeprazole and told follow up with GI if no improvement. Patient understands and agrees plan. - Chest Pain Differential Diagnosis/HQI/PQRI: Chest Wall, GI Disease, Pulmonary Embolism - Diagnoses Provider Diagnoses: Chest wall pain, Epigastric pain Discharge ED - Sign-Out/Discharge Documenting (check all that apply): Patient Departure - Discharge Plan Condition: Good Disposition: HOME Prescriptions: Omeprazole CAP (NF) [Prilosec CAP* 20 MG] 20 mg PO DAILY #14 cap.dr Patient Education Materials: Chest Wall Pain (ED) Referrals: [facility] - Jass DANIEL [Primary Care Provider] - Pool Paul DO [Doctor of Osteopathy] - Additional Instructions: take omeprazole once a day take tyenlol every 6 hours for pain follow up with GI if no improvement in two weeks Return to ED if develop any new or worsening symptoms - Billing Disposition and Condition Condition: GOOD Disposition: Home
[2019-01-14 22:10] VITALS: BP 110/69
== END 2019-01-14 22:10 | disposition home or self-care (01) ==
LOC: ED 17:07
DX: R07.89 Other chest pain (principal); R10.13 Epigastric pain; R06.02 Shortness of breath; F17.210 Nicotine dependence, cigarettes, uncomplicated; Z79.899 Other long term (current) drug therapy
CPT/HCPCS: 36415; 80053; 84484; 84702; 85025; 85379; 85610; 86140; 93005; 99283